=== PATIENT | male | born 1950 | race Caucasian/White ===

== ENCOUNTER 2022-05-29 01:40 | Day surgery (SDC) | payer MEDICARE, SELFPAY ==
[2022-05-16 09:52] VITALS: BMI 19.5
[2022-05-29 06:18] VITALS: BP 142/88; PULSE 55; RESP 18; TEMP 35.9; O2SAT 100; BMI 17.2
[2022-05-29] MEDS: LACTATED RINGERS 1,000 ML 150 ML IV CONT (06:43)
--- NOTE | 2022-05-29 06:47 | WPDANESEPPF ---
Anes - Initial Pre Proc Eval Procedure: Operation Date: 05/29/22 07:30 Proposed Procedures p Screening Colonoscopy - Juve Hernandez MD Date/Time: 05/29/22 06:47 Surgeon: Juve Hernandez MD Pre Op Diagnosis: neoplasm screening Patient Data Age: 71 Gender: M Height: 1.8 m Weight: 55.8 kg Last Vital Signs Temp 35.9 C L 05/29/22 06:18 Pulse 55 L 05/29/22 06:18 Resp 18 05/29/22 06:18 BP 142/88 H 05/29/22 06:18 Pulse Ox 100 05/29/22 06:18 O2 Del Method Room Air 05/29/22 06:18 Allergies Allergy/AdvReac Type Severity Reaction Status Date / Time shellfish derived Allergy Severe Swelling Verified 05/29/22 06:26 of Lip/Tongue/Throat Home Medications Medication Instructions Recorded Confirmed Type No Home Medications 05/16/22 05/29/22 History Patient hx anesthesia problems: none Family hx anesthesia problems: none Results Review: All pre-operative results and documents have been reviewed as part of the pre-operative evaluation. [facility] Past Medical History Medical History (Updated 05/29/22 @ 07:28 by Juve Hernandez MD) Colon cancer screening Squamous cell carcinoma of back Social History Social History Smoking status: Never smoker Alcohol intake: current Drinks per week: 3 Substance use: never Substance use type: does not use Living arrangements: alone Spiritual care concerns: No Anes - Eval Final PreProcedure Day of Procedure 05/29/22 06:47 Patient weight: normal Heart: regular rate and rhythm Lungs: clear to auscultation and normal air movement Airway: Mallampati scale class II Neurological: alert and oriented Last oral intake: >/= 8 hours ASA classification: II Emergent: no Anesthetic plan: proceed Anesthesia type and monitoring: general GIVS and standard monitoring Results Review: All pre-operative results and documents have been reviewed as part of the pre-operative evaluation. Informed Consent: The patient's anesthetic plan and its attendant risks and benefits were discussed with the patient/family/POA. Questions were solicited and answers provided to the satisfaction of the patient/family/POA.
--- NOTE | 2022-05-29 07:27 | PM.HPGS ---
History of Present Illness History of Present Illness Consent: Risks, benefits, and alternatives have been discussed and questions answered. Patient agrees to proceed with procedure. Chief complaint: neoplasm screening Narrative: Kevin Solomon is a 71 year old male here for first screening colonoscopy Review of Systems Constitutional: Constitutional: Denies headache(s) and Denies weakness Eyes: Eyes: Denies blurry vision ENT: Reports Normal hearing present, Denies headache(s) and Denies neck pain Cardiovascular: Cardiovascular: Denies chest pain and Denies dyspnea Respiratory: Respiratory: Denies dyspnea Gastrointestinal: Gastrointestinal: Reports no additional gastrointestinal complaints Genitourinary: Genitourinary: Denies dysuria Musculoskeletal: Musculoskeletal: Denies neck pain Integumentary/Breasts: Skin/Breast: Denies dry skin Neurologic: Reports Normal hearing present, Denies headache(s) and Denies weakness Psychiatric: Psychiatric: Denies anxiety Endocrine: Endocrine: Denies change in body appearance Hematologic/Lymphatic: Hematologic/Lymphatic: Denies easy bleeding Allergic/Immunologic: Allergic/Immunologic: Denies urticaria PMFSH Past Medical History Medical History (Updated 05/29/22 @ 07:28 by Juve Hernandez MD) Colon cancer screening Squamous cell carcinoma of back Social History Social History Smoking status: Never smoker Alcohol intake: current Drinks per week: 3 Substance use: never Substance use type: does not use Living arrangements: alone Spiritual care concerns: No Meds Home Medications and Allergies Home Medications Medication Instructions Recorded Confirmed Type No Home Medications 05/16/22 05/29/22 History Allergies Allergy/AdvReac Type Severity Reaction Status Date / Time shellfish derived Allergy Severe Swelling Verified 05/29/22 06:26 of Lip/Tongue/Throat Vital Signs Vital Signs - 24 hr 05/29/22 06:18 Temperature 96.7 F L Pulse Rate 55 L Respiratory Rate 18 Blood Pressure 142/88 H Pulse Oximetry 100 Oxygen Delivery Room Air Exam Const: General: comfortable and no acute distress HENMT: Face/Nose/Sinus: Normal nares present Eyes: General: appearance normal, both eyes and all related structures Neck: Neck: no JVD Resp: Auscultation: clear to auscultation bilaterally Cardio: Rate: regular rate Rhythm: regular rhythm GI: Inspection: non-distended GI Palp: Yes Soft to palpation Skin: General skin exam: normal color Neuro: General: gait normal Speech: normal speech Extrem: General: normal to inspection Psych: Mental Status: mental status grossly normal Assessment and Plan Assessment and plan (1) Colon cancer screening: Code(s): Z12.11 - Encounter for screening for malignant neoplasm of colon Status: Acute Assessment and Plan: colonoscopy
[2022-05-29 07:47] VITALS: BP 108/72; PULSE 55; RESP 14; O2SAT 100
[2022-05-29 07:57] VITALS: BP 112/71; PULSE 55; RESP 15; O2SAT 100
[2022-05-29 08:07] VITALS: BP 125/73; PULSE 55; RESP 17; O2SAT 100
== END 2022-05-29 08:25 | disposition home or self-care (01) ==
PROVIDERS: PCP Internal Medicine; Visit Provider Internal Medicine Gastroenterology
PROC: 0DJD8ZZ Inspection of Lower Intestinal Tract, Via Natural or Artificial Opening Endoscopic (ICD-10-PCS; CPT 45378; principal; 2022-05-29 07:30)
DX: Z12.11 Encounter for screening for malignant neoplasm of colon (principal); K64.8 Other hemorrhoids
CPT/HCPCS: G0121; J2704; J7120